=== PATIENT | male | born 1935 | race Caucasian/White ===

== ENCOUNTER 2017-12-24 14:43 | Emergency (ER) | payer MEDICARE ==
[~2017-12-24] VITALS: Ht 170.2 cm; Wt 73.7 kg
[~2017-12-24 14:43] MED LIST: ATOR10TA9 PO; BIMA2.5D EACHEYE; OMEP40CA6 PO; RIVA20TA PO
[2017-12-24] MEDS ORDERED: SODIUM CHLORIDE 0.9% 1,000ML IVBOLUS ONE (15:00)
[2017-12-24] MEDS ORDERED: METO25TA35 PO (15:01)
[2017-12-24 15:24] LABS: BASOPHILS # (AUTO) 0.04 x10^3/uL (0-0.1); BASOPHILS % (AUTO) 0 % (0-1); EOSINOPHILS # (AUTO) 0.02 x10^3/uL (0-0.4); EOSINOPHILS % (AUTO) 0 % (1-7); LYMPHOCYTES # (AUTO) 3.14 x10^3/uL (1-3.4); LYMPHOCYTES % (AUTO) 29 % (22-44); MD NO; MEAN CORPUSCULAR HEMOGLOBIN 30.2 pg (27.5-34.5); MEAN CORPUSCULAR HGB CONC 33.4 g/dL (33.2-36.2); MEAN CORPUSCULAR VOLUME 90.4 fL (81-97); MEAN PLATELET VOLUME 11.9 fL (7.4-10.4); MONOCYTES # (AUTO) 0.72 x10^3/uL (0.2-0.8); MONOCYTES % (AUTO) 7 % (2-9); NEUTROPHILS % (AUTO) 64 % (42-75); PLATELET COUNT 139 x10^3/uL (130-400); RED BLOOD COUNT 4.95 x10^6/uL (4.38-5.82)
[2017-12-24 15:30] LABS: ALANINE AMINOTRANSFERASE 20 U/L (12-78); ALBUMIN 3.3 g/dL (3.4-5.0); ANION GAP 7 mmol/L (5-15); CALCIUM 8.2 mg/dL (8.5-10.1); CHLORIDE 110 mmol/L (98-107); CREATININE 1.03 mg/dL (0.7-1.3)
[2017-12-24 15:33] LABS: ALKALINE PHOSPHATASE 90 U/L (45-117); BILIRUBIN,TOTAL 0.8 mg/dL (0.2-1.0); TOTAL PROTEIN 6.1 g/dL (6.4-8.2)
[2017-12-24 17:01] VITALS: BP 120/59
== END 2017-12-24 17:03 | disposition home or self-care (01) ==
LOC: ED 16:08
DX: R55 Syncope and collapse (principal); B34.9 Viral infection, unspecified; E78.5 Hyperlipidemia, unspecified; K21.9 Gastro-esophageal reflux disease without esophagitis; I48.91 Unspecified atrial fibrillation; Z90.49 Acquired absence of other specified parts of digestive tract; Z86.73 Personal history of transient ischemic attack (TIA), and cerebral infarction without residual deficits
CPT/HCPCS: 36415; 80053; 85025; 93005; 96360; 96361; 99285; J7030

== ENCOUNTER → 2020-03-25 | Outpatient (CLI) | payer MEDICARE ==
[~2020-03-25] MED LIST changes: +METO25TA35 PO; +OMEP40CA42 PO; -OMEP40CA6 PO
== END | disposition home or self-care (01) ==
LOC: CFH 09:37
PROVIDERS: ATTEND Internal Medicine Cardiovascular Disease
DX: I08.0 Rheumatic disorders of both mitral and aortic valves (principal); E78.5 Hyperlipidemia, unspecified; I48.0 Paroxysmal atrial fibrillation; Z86.73 Personal history of transient ischemic attack (TIA), and cerebral infarction without residual deficits; Z79.01 Long term (current) use of anticoagulants
CPT/HCPCS: 93306

== ENCOUNTER → 2020-08-05 | Outpatient (CLI) | payer MEDICARE ==
[~2020-08-05] MED LIST changes: -BIMA2.5D EACHEYE; +BIMA2.5D LEFTEYE; +FINA5TAB4 PO; +LATA2.5D3 LEFTEYE; +fish oil PO
== END | disposition home or self-care (01) ==
LOC: STAR 10:07
PROVIDERS: ATTEND Urology
DX: Z01.812 Encounter for preprocedural laboratory examination (principal); Z20.828 Contact with and (suspected) exposure to other viral communicable diseases; D49.4 Neoplasm of unspecified behavior of bladder
CPT/HCPCS: 36415; 87635; 93005

== ENCOUNTER 2020-08-10 10:48 | Day surgery (SDC) | payer MEDICARE ==
[~2020-08-10] VITALS: Ht 170.2 cm; Wt 72.8 kg
[2020-08-10] MEDS ORDERED: LACTATED RINGERS 1,000 ML IV SCH (11:15)
[2020-08-10] MEDS ORDERED: CHLORHEXIDINE 15 ML UDC MM ONE (11:30)
[2020-08-10] MEDS ORDERED: LIDOCAINE-MPF 1%, 2ML INFIL ONE (11:30)
[2020-08-10 11:45] VITALS: BP 152/83
[2020-08-10] MEDS ORDERED: LIDOCAINE-MPF 2% ,5ML ONE (13:05)
[2020-08-10] MEDS ORDERED: PROPOFOL 10 MG/ML, 20ML ONE ×2 (13:05)
[2020-08-10] MEDS ORDERED: FENTANYL PF 100 MCG/2ML ONE ×2 (13:05→14:30)
[2020-08-10] MEDS ORDERED: ONDANSETRON 2MG/ML, 2ML IVPush PRN (13:30)
[2020-08-10] MEDS ORDERED: OXYcodone 5 MG/5 ML ORAL.SOL UDC PO PRN (13:30)
[2020-08-10] MEDS ORDERED: EPHEDRINE 50 MG/ML, 1ML ONE (13:39)
[2020-08-10] MEDS ORDERED: CEFAZOLIN 1,000 MG ONE ×2 (13:41)
[2020-08-10] MEDS ORDERED: SUCCINYLCHOLINE 20 MG/ML, 10ML ONE (13:49)
[2020-08-10] MEDS ORDERED: SODIUM CHLORIDE 0.9% INTVESIC ONE (14:00)
[2020-08-10] MEDS ORDERED: MITOMYCIN INTVESIC ONE (14:00)
[2020-08-10] MEDS ORDERED: OPIUM/BELLADONNA SUPP.RECT 16.2-60 MG PR ONE (14:30)
[2020-08-10] MEDS ORDERED: OPIUM/BELLADONNA SUPP.RECT 16.2-60 MG ONE (14:31)
[2020-08-10] MEDS: FENTANYL PF 100 MCG/2ML IV PRN ×3 (14:37→14:59)
[2020-08-10] MEDS ORDERED: PHENAZOPYRIDINE 200 MG TABLET ONE (17:12)
[2020-08-10] MEDS ORDERED: PHENAZOPYRIDINE 200 MG TABLET PO SCH (17:30)
== END 2020-08-10 18:15 | disposition home or self-care (01) ==
LOC: OUT 10:48
PROVIDERS: ATTEND Urology
DX: D49.4 Neoplasm of unspecified behavior of bladder (principal); C67.2 Malignant neoplasm of lateral wall of bladder; I48.91 Unspecified atrial fibrillation; E78.5 Hyperlipidemia, unspecified; K21.9 Gastro-esophageal reflux disease without esophagitis; N40.0 Benign prostatic hyperplasia without lower urinary tract symptoms; Z79.899 Other long term (current) drug therapy; Z72.89 Other problems related to lifestyle; Z86.73 Personal history of transient ischemic attack (TIA), and cerebral infarction without residual deficits; Z98.52 Vasectomy status; Z98.890 Other specified postprocedural states; Z79.01 Long term (current) use of anticoagulants
CPT/HCPCS: 51720; 52235; 88305; J0330; J0690; J2704; J3010; J7120; J9280

== ENCOUNTER 2020-08-11 14:46 | Emergency (ER) | payer MEDICARE ==
[~2020-08-11] VITALS: Ht 170.2 cm; Wt 73.0 kg
[2020-08-11 14:57] VITALS: BP 130/66
--- NOTE | 2020-08-11 15:07 | NUR ---
BIB [facility] FROM HOME. PT C/O BLADDER SPASMS AFTER HAVING TUMOR REMOVED FROM BLADDER YESTERDAY. INDWELLING [place], 24F, IN PLACE UPON ARRIVAL. 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 PT CONNECTED TO MONITORING. CALL LIGHT IN REACH. PT STATES PAIN/SPASMS ARE BETTER AFTER FENTYNAL. PT HAS NOT TAKEN ANY PAIN MEDS AT HOME.
--- NOTE | 2020-08-11 15:48 | NUR ---
PETERD TO CONSULT WITH SURGEON.
[2020-08-11] MEDS ORDERED: ONDANSETRON 2MG/ML, 2ML ONE (16:09)
[2020-08-11] MEDS ORDERED: MORPHINE SULFATE 4 MG/ML, 1ML ONE (16:09)
--- NOTE | 2020-08-11 16:14 | NUR ---
MEDS ADMIN PER JAN. PT PROVIDED FOOD AND WATER, PER MD REQUEST.
[2020-08-11] MEDS ORDERED: ONDANSETRON 2MG/ML, 2ML IVPush ONE (16:30)
[2020-08-11] MEDS ORDERED: MORPHINE SULFATE 4 MG/ML, 1ML IVPush PRN (16:30)
--- NOTE | 2020-08-11 16:44 | NUR ---
PT IS RESTING MORE COMFORTABLY ON GURNEY. PT DENIES N/V AFTER EATING/DRINKING.
== END 2020-08-11 17:38 | disposition home or self-care (01) ==
LOC: ED 15:47
DX: N99.89 Other postprocedural complications and disorders of genitourinary system (principal); R10.30 Lower abdominal pain, unspecified; R11.2 Nausea with vomiting, unspecified; K21.9 Gastro-esophageal reflux disease without esophagitis; I48.91 Unspecified atrial fibrillation; E78.5 Hyperlipidemia, unspecified; Z90.49 Acquired absence of other specified parts of digestive tract; Z90.89 Acquired absence of other organs; Z86.73 Personal history of transient ischemic attack (TIA), and cerebral infarction without residual deficits
CPT/HCPCS: 96374; 96375; 99284; J2270; J2405